=== PATIENT | female | born 1965 | race Caucasian/White ===

== ENCOUNTER 2018-10-11 03:13 | Observation (INO) | payer MEDICAID ==
[~2018-10-11] VITALS: Ht 147.3 cm; Wt 40.9 kg
--- NOTE | ~2018-10-11 | HEMODYNAMI ---
PATIENT:ELLY MERCEDES MEDICAL RECORD: [id number] : 69 [facility] [id number] ADMISSION DATE: 10/11/18 Generatedon:10/11/201811:27 Patient name: ELLY MERCEDES Patient #: [id number] SSN: DO B: 1965 Date of study: 10/11/2018 Page: Of Hemodynamic Procedure Report Patient Data Patient Demographics Procedure consent was obtained First Name: ELLY Gender: Female Last Name: DAREN : 1965 Patient #: [id number] Age: 53 year(s) Race: Unknown Additional ID: [id number] Contact details Address: [address] [place] [address] State: [place] City: [place] Zip code: [address] Past Medical History Allergies: No known allergies Admission Admission Data Admission Date: 10/11/2018 Admission Time: 4:01 Room #: D2119 Lab Results Lab Result Date: 10/11/2018 Lab Result Time: 0:00 Biochemistry Name Units Result Min Max BUN mg/dl 10 --(-*--)-- 7 18 Creatinine mg/dl 0.7 --(*---)-- 0.6 1.3 eGFR ml/min 90 --(*---)-- 90 120 NONAFRICAN CBC Name Units Result Min Max Hematocrit % 38.9 *-(----)-- 42 54 Hemoglobin g/dl 13.5 --(*---)-- 13.5 17.5 Procedure Procedure Types Cath Procedure Diagnostic Procedure C [facility] w/Coronaries Sedation Charges Moderate Sedation up to 30 minutes PCI Procedure Coronary Stent Coronary Stent Initial Procedure Description Procedure Date Procedure Date: 10/11/2018 Procedure Start Time: 10:58 Procedure End Time: 11:26 Procedure Staff Name Function Wilmer Kraus MD Performing Physician Amina Monge RT Monitor Henna Gamble RT Scrub Coleman Norman RT Scrub Courtney Denney RN Nurse Procedure Data Cath Procedure Fluoroscopy Diagnostic fluoroscopy Total fluoroscopy Time: 4.7 time: 4.7 min min Diagnostic fluoroscopy Total fluoroscopy dose: 212 dose: 212 mGy mGy Contrast Material Contrast Material Type Amount (ml) Isovue 300 101 Entry Location Entry Primary Successful Side Size Upsize Upsize Entry Closure Succes sful Closure Location (Fr) 1 (Fr) 2 (Fr) Remarks Device Remarks Femoral Right 5 Fr 6 Fr Exoseal artery Short Estimated blood loss: 10 ml Diagnostic catheters Device Type Used For End Catheter Placement MULTIPACK JL 4.0 5Fr Procedure catheter MULTIPACK 3DRC 5Fr Procedure catheter MULTIPACK Pigtail 5 Fr Procedure catheter Procedure Complications No complications Procedure Medications Medication Administration Route Dosage 0.9% NaCl I.V. 100 ml/hr Oxygen etCO2 Nasal cannula 2 l/min Lidocaine 2% added to field 20 Heparin Flush Bag added to field 2 bags (1000units/500ml NS) Versed I.V. 2 mg Fentanyl I.V. 50 mcg Fentanyl I.V. 50 mcg Versed I.V. 2 mg Heparin Bolus I.V. 4000 units Nitroglycerin IC/IA I.C. 100 mcg Plavix P.O. 600 mg Nitroglycerin IC/IA I.C. 100 mcg Hemodynamics Rest HGB: 13.5 (g/dl) Heart Rate: 44 (bpm) Pressure Samples Time Site Value (mmHg) Purpose Heart Use Rate(bpm) 11:06 LV 101/3,13 Snapshot 75 11:08 AO 106/62(81) Pullback 71 11:08 LV 110/6,30 Pullback 71 Gradients Valve Time Site 1 Site 2 Mean SEP/DFP Peak To Heart Use (mmHg) (sec/min) Peak Rate (mmHg) (bpm) Aortic 11:08 LV AO 6 21 4 71 110/6,30 106/62(81) Calculations Valve P-P Mean Valve Index Valve Source Name Gradient Area Flow (cm2) Aortic 4 6 4 6 Snapshots Pre Cath Intra NCS Post Cath Vital Signs Time Heart Resp SPO2 etCO2 NIBP Rhythm Pain Sedation Rate (ipm) (%) (mmHg) (mmHg) Status Level (bpm) 10:38:08 49 18 100 28 128/80(99) SB 0 (11) 10(A) , No pain 10:42:15 51 15 100 34.4 125/70(99) SB 0 (11) 10(A) , No pain 10:46:23 63 19 100 38.9 106/67(87) NSR 0 (11) 10(A) , No pain 10:50:25 71 12 100 41.2 104/64(80) NSR 0 (11) 10(A) , No pain 10:54:27 64 11 99 41.2 102/60(76) NSR 0 (11) 9(A) , No pain 10:58:28 62 11 100 40.4 95/58(72) NSR 0 (11) 9(A) , No pain 11:02:24 68 13 100 37.4 111/68(82) NSR 0 (11) 9(A) , No pain 11:06:27 74 11 100 38.9 98/61(79) NSR 0 (11) 9(A) , No pain 11:10:27 72 12 100 38.9 97/60(76) NSR 0 (11) 9(A) , No pain 11:14:31 79 12 100 39.7 100/46(70) NSR 0 (11) 10(A) , No pain 11:18:34 72 12 100 38.2 88/53(68) NSR 0 (11) 10(A) , No pain 11:22:32 75 12 98 37.4 90/54(73) NSR 0 (11) 10(A) , No pain 11:26:28 62 11 100 33.7 108/65(83) NSR 0 (11) 10(A) , No pain Medications Time Medication Route Dose Verified Delivered Reason Notes Effectiveness by by 10:41:08 0.9% NaCl I.V. 100 Wilmer Courtney used for ml/hr Efra Denney hand sander 10:41:14 Oxygen etCO2 2 Wilmer Courtney used for Nasal l/min Efra Denney procedure cannula RN 10:41:20 Lidocaine 2% added 20ml Wilmer Wilmer for local to vial Efra Kraus MD anesthetic field 10:41:24 Heparin Flush added 2 Wilmer Wilmer used for Bag to bags Efra Kraus MD procedure (1000units/500ml field NS) 10:48:28 Fentanyl I.V. 50 Wilmer Courtney for sedation mcg Efra Denney RN 10:48:28 Versed I.V. 2 mg Wilmer Courtney for sedation Efra Denney RN 10:53:03 Fentanyl I.V. 50 Wilmer Courtney for sedation mcg Efra Denney RN 10:53:12 Versed I.V. 2 mg Wilmer Courtney for sedation Efra Denney RN 11:13:22 Heparin Bolus I.V. 4000 Wilmer Courtney for verif ied units Efra Denney anticoagulation with Dr. SARA Kraus 11:13:37 Nitroglycerin I.C. 100 Wilmer Wilmer for IC/IA mcg Efra Kraus MD vasodilation 11:17:36 Plavix P.O. 600 Wilmer Wilmer for mg Efra Kraus MD antiplatelet therapy 11:19:53 Nitroglycerin I.C. 100 Wilmer Wilmer for IC/IA mcg Efra Kraus MD vasodilation Procedure Log Time Note 10:12:15 Signed procedure consent form obtained from patient. 10:12:18 Diagnostic Cath status Urgent 10:12:18 Time tracking: Regular hours (M-F 7:00 - 5:00) 10:12:24 Plan of Care:Hemodynamics will remain stable., Cardiac rhythm will remain stable., Comfort level will be maintained., Respiratory function will remain adequate., Patient/ family verbilizes understanding of procedure., Procedure tolerated without complication., Recovers from procedure without complications.. 10:12:42 Patient allergic to No known allergies 10:13:20 Lab Result : Creatinine 0.7 mg/dl 10:13:20 Lab Result : BUN 10 mg/dl 10:13:20 Lab Result : eGFR NONAFRICAN 90 ml/min 10:13:20 Lab Result : Hematocrit 38.9 % 10:13:20 Lab Result : Hemoglobin 13.5 g/dl 10:15:17 Amina Monge RT(R) sent for patient. Start room use. 10:33:35 Patient received from Med II to CCL 1 Alert and oriented. Tansferred to table in Supine position. 10:33:36 Warm blankets applied, and paradise hugger turned on for patient comfort. 10:33:38 Correct patient and procedure confirmed by team. 10:33:39 ECG and BP/O2 sat monitors applied to patient. 10:37:17 Vital chart was started 10:39:53 Baseline sample Acquired. 10:39:57 Rhythm: sinus bradycardia 10:39:58 Full Disclosure recording started 10:39:58 Pre-procedure instructions explained to patient. 10:39:59 Pre-op teaching completed and patient verbalized understanding. 10:40:00 Family in patients room. 10:40:01 Patient NPO since Midnight. 10:40:04 Is patient on blood thinner?No 10:40:05 Patient diabetic? No. 10:40:07 Patient not . Patient has had hysterectomy. 10:40:09 Patient not . Patient has had hysterectomy. 10:40:11 Previous problem with sedation/anesthesia? No ? 10:40:14 Snore? Yes 10:40:15 Sleep apnea? No 10:40:15 Deviated septum? No 10:40:16 Opens mouth fully? Yes 10:40:17 Sticks out tongue? Yes 10:40:20 Airway obstruction? Yes COPD 10:40:27 Dentures? Yes PARTIAL OUT 10:40:31 Pre procedure: right dorsailis pedis pulse 1+ Palpable, but thready & weak; easily obliterated 10:40:37 Patient pain scale 0/10 ?. 10:40:42 IV patent on arrival in right wrist with 0.9% NaCl at O. 10:40:45 Lab results completed and on chart. 10:40:57 Right groin area was prepped with chlora-prep and draped in sterile fashion 10:40:58 Alarms reviewed by R. N. 10:40:58 Sharps counted by scrub and verified by R.N. 10:41:01 Use device set Femoral Dx 10:41:01 ACIST Syringe (97007) opened to sterile field. 10:41:02 Bag Decanter () opened to sterile field. 10:41:03 ACIST Hand Control (45721) opened to sterile field. 10:41:03 ACIST Manifold (25196) opened to sterile field. 10:41:04 Tegaderm 4 x 4 (1626W) opened to sterile field. 10:41:05 Medline Cath Pack ([id number]) opened to sterile field. 10:41:07 DIAGNOSTIC Multipack 5Fr catheter set (FL0619) opened to sterile field. 10:41:08 0.9% NaCl 100 ml/hr I.V. was administered by Courtney Denney RN; used for procedure; 10:41:08 SHEATH 5FR Franklin (JFV654) opened to sterile field. 10:41:08 EMERALD Guide Wire (794-251) opened to sterile field. 10:41:14 Oxygen 2 l/min etCO2 Nasal cannula was administered by Courtney Denney RN; used for procedure; 10:41:20 Lidocaine 2% 20ml vial added to field was administered by Wilmer Kraus MD; for local anesthetic; 10:41:24 Heparin Flush Bag (1000units/500ml NS) 2 bags added to field was administered by Wilmer Kraus MD; used for procedure; 10:47:27 --------ALL STOP TIME OUT------ 10:47:27 Final Timeout: patient, procedure, and site verified with staff and physician. All members of the team are in agreement. 10:47:29 Right groin site verified by team. 10:47:33 Fire Safety Assessment: A--An alcohol-based skin anteseptic being used preoperatively., C--Open oxygen or nitrous oxide is being used., D--An ESU, laser, or fiber-optic light is being used. 10:48:10 Physical assessment completed. ASA score P 3 - A patient with severe systemic disease as per Wilmer Kraus MD. 10:48:14 1) 90+ Normal kidney functon but urine findings or structural abnormalities or genetic trait point to kidney disease. 10:48:18 Maximum allowable contrast does (3.7 X eGFR X 0.75)250 ml. 10:48:21 Sedation plan: IV Moderate Sedation Medication:Versed, Fentanyl 10:48:28 Versed 2 mg I.V. was administered by Courtney Denney RN; for sedation; 10:48:28 Fentanyl 50 mcg I.V. was administered by Courtney Denney RN; for sedation; 10:52:47 Zero performed for pressure channel P1 10:53:03 Fentanyl 50 mcg I.V. was administered by Courtney Denney RN; for sedation; 10:53:12 Versed 2 mg I.V. was administered by Courtney Denney RN; for sedation; 10:56:26 Procedure started. 10:58:00 Local anesthetic to right femoral artery with Lidocaine 2% by Wilmer Kraus MD.INITIAL ACCESS ONLY 10:59:59 A 5 Fr sheath was inserted into the Right Femoral artery 11:00:14 A MULTIPACK JL 4.0 5Fr catheter was advanced over the wire and used for Procedure. 11:02:51 LCA angiography performed. 11:02:52 Catheter exchanged over wire. 11:03:44 A MULTIPACK 3DRC 5Fr catheter was advanced over the wire and used for Procedure. 11:04:52 RCA angiography performed. 11:04:54 Catheter exchanged over wire. 11:05:48 A MULTIPACK Pigtail 5 Fr catheter was advanced over the wire and used for Procedure. 11:06:48 LV gram done using BARRETO 11:06:51 Injector settings: Ml/sec: 10, Volume: 20, 11:07:03 LV hemodynamics recorded. 11:07:46 EF : 50 % 11:08:01 Catheter exchanged over wire. 11:10:00 SHEATH 6FR Franklin (XJL239) opened to sterile field. 11:10:06 BMW 300cm Straight [place] 2 wire ([id number]) opened to sterile field. 11:10:11 TUBING High Pressure Extension Tubing (Efra) (RS0512R) opened to sterile field. 11:10:25 INFLATOR Merit BasixCompak (TU4617) opened to sterile field. 11:10:30 GUIDE 6FR EBU 3.0 catheter ([id number]) opened to sterile field. 11:10:57 Sheath upsized to a 6 Fr Short. 11:11:47 6 Fr EBU3 guide catheter was inserted over the wire 11:13:22 Heparin Bolus 4000 units I.V. was administered by Courtney Denney RN; for anticoagulation; verified with Dr. Kraus 11:13:37 Nitroglycerin IC/IA 100 mcg I.C. was administered by Wilmer Kraus MD; for vasodilation; 11:15:02 BMW 300 wire advanced. 11:17:36 Plavix 600 mg P.O. was administered by Wilmer Kraus MD; for antiplatelet therapy; 11:18:04 Wire advanced across lesion. 11:19:30 Place stent Inflation Number: 1 A COBRA RX 3.0 X 18 Stent was prepped and advanced across the Mid LAD . The stent was deployed at 14 LUBNA for 0:00 (min:sec) . 11:19:38 Stent catheter was removed intact over wire. 11:19:53 Nitroglycerin IC/IA 100 mcg I.C. was administered by Wilmer Kraus MD; for vasodilation; 11::16 Wire removed. 11:21:16 Guide catheter removed. 11:21:23 EXOSEAL 6Fr (EX600) opened to sterile field. 11::55 Sheath removed intact; hemostasis achieved with Exoseal to the Right Femoral artery. 11:23:09 Fluoroscopy time 04.70 minutes. 11:23:11 Fluoroscopy dose: 212 mGy 11:23:11 Flurop Dose total: 212 11:23:15 Contrast amount:Isovue 300 101ml. 11:23:16 Procedure ended.(Physican Out) 11:23:25 Sharps counted by scrub and verified by R.N. 11:23:28 Post-op/insertion site Right Femoral artery dressed using a 4 x 4 and Tegaderm. 11:23:36 Post-procedure physical assessment completed. ASA score P 3 - A patient with severe systemic disease as per Wilmer Kraus MD. 11:23:39 Post procedure rhythm: sinus rhythm 11:23:52 Estimated blood loss: 10 ml 11:23:53 Post procedure instruction explained to patient.Patient verbalizes understanding. 11:23:54 Patient needs reinforcement of post procedure teaching. 11:24:17 Procedure type changed to Cath procedure, Diagnostic procedure, LHC, LHC w/Coronaries, Sedation Charges, Moderate Sedation up to 30 minutes, PCI procedure, Coronary Stent, Coronary Stent Initial 11:25:40 Procedure and supply charges have been captured, reviewed, submitted and are correct. 11:25:49 Procedure Complication : No complications 11:26:47 Vital chart was stopped 11:26:48 See physician's report for complete and final results. 11::52 Report given to [facility]. 11:26:55 Patient transfered to [facility] with Bed. 11:26:57 Procedure ended. 11:26:57 Full Disclosure recording stopped 11:27:01 End room use (Document Last) Intervention Summary Intervention Notes Time ActionType Lesion and Equipment Action# Pressure Duration Attributes Used 11:19:30 Place stent Mid LAD COBRA RX 1 14 00:00 3.0 X 18 Stent Device Usage Item Name Manufacture Quantity Catalog Hospital Part Current Minimal Lot# / Number Charge Number Stock Stock Serial# Code ACIST Syringe Acist 1 42417 054851 346699 066079 20 (01671) Everyday Solutions Bag Decanter Microtek 1 737538 74737 554352 5 (2001S) Medical Inc. ACIST Hand Acist 1 47138 937200 176557 612320 5 Control Medical (94136) Systems Inc ACIST Manifold Acist 1 96923 024980 111098 339379 5 (11063) Medical Systems Inc Tegaderm 4 x 4 3M 1 1626W 294885 961534 143557 5 (1626W) Medline Cath Medline 1 [id number] 546248 96176 343066 5 Pack ([id number]) DIAGNOSTIC Cardinal 1 HI6340 941520 34201 650700 30 Multipack 5Fr Health catheter set (DG0206) SHEATH 5FR Terumo 1 JES903 094042 703785 922448 5 Franklin (MMD563) EMERALD Guide Cardinal 1 502-455 001655 567939 926977 5 Wire (502-455) Health MULTIPACK JL Cardinal 1 601415 5 4.0 5Fr Health catheter MULTIPACK 3DRC Cardinal 1 902565 5 5Fr catheter Health MULTIPACK Cardinal 1 499761 5 Pigtail 5 Fr Health catheter SHEATH 6FR Terumo 1 PTE818 955182 225303 845558 40 Franklin (YPL729) BMW 300cm Dias 1 3949638 360037 500821 656561 5 Straight Vascular [place] 2 wire (0729483) TUBING High Merit 1 [id number] 509136 14294 732363 10 Pressure Medical Extension Tubing (Kraus) ([id number]) INFLATOR Merit Merit 1 TX0917 241207 055470 622454 15 BasixAcadia HealthcareTaxiPixi Medical (NO8604) GUIDE 6FR EBU Medtronic 1 [id number] 648796 08026 045606 0 3.0 catheter ([id number]) COBRA RX 3.0 X Celonova 1 368224 [id number] [id number] 0 [id number] 18 stent Biosciences () EXOSEAL 6Fr Cardinal 1 EX600 185153 967927 839873 10 (EX600) Health Signature Audit [place] Stage Time Signature Unsigned Intra-Procedure 10/11/2018 Amina Monge 11:27:23 AM RT(R) Signatures Monitor : Amina Monge Signature : RT Date : Time : [address] [place] [address]
[2018-10-11] MEDS ORDERED: COMBIVENT RESPIM4 GM INH (03:27)
[2018-10-11] MEDS ORDERED: CALCIUM 600 +1 EAC3 PO (03:27)
[2018-10-11 04:00] VITALS: BP 104/64
[2018-10-11 04:32] LABS: CKMB 0.6 U/L (0.0-3.6); CREATINE KINASE 52 UL (21-215)
[2018-10-11 04:33] LABS: TROPONIN-I < 0.017 ng/mL (0.000-0.060)
[2018-10-11 04:59] VITALS: BP 104/64; Ht 147.3 cm; Wt 40.9 kg
[2018-10-11 06:01] LABS: BASOPHILS 0.1 % (0-2); EOSINOPHILS 1.6 % (0-7); HEMATOCRIT 38.9 % (36.0-48.0); HEMOGLOBIN 13.5 g/dL (12-16); IMMATURE GRANULOCYTES 0.1 % (0-5); LYMPHOCYTES 41.1 % (15-50); MCH 32.5 pg (26.0-34.0); MCHC 34.7 g/dL (31.0-37.0); MCV 93.5 fL (80.0-100.0); MEAN PLATELET VOLUME 10.8 fL (7.4-10.4); MONOCYTES 6.9 % (2-11); NEUTROPHILS 50.2 % (40-80); PLATELET COUNT 236 10x3/uL (130-400); RBC 4.16 10x6/uL (4.00-5.40); RDW 13.9 % (11.5-14.5); WBC 8.2 10x3/uL (4.8-10.8)
[2018-10-11 06:36] LABS: CALC OSMOLALITY 283 mosm/kg (275-300); CALCIUM 8.6 mg/dL (8.5-10.1); CARBON DIOXIDE 26.3 mmol/L (21.0-32.0); CHLORIDE - SERUM 108 mmol/L (98-107); CREATININE - SERUM 0.7 mg/dL (0.6-1.3); GLUCOSE 100 mg/dL (74-106); MAGNESIUM - SERUM 2.5 mg/dL (1.8-2.4); PHOSPHOROUS 3.6 mg/dL (2.5-4.9); POTASSIUM - SERUM 4.2 mmol/L (3.5-5.1); SODIUM 143 mmol/L (136-145); UREA NITROGEN 10 mg/dL (7-18); eGFR NON AFRICAN AMERICAN > 90 mL/min (90-120)
[2018-10-11 07:11] LABS: CKMB 0.8 U/L (0.0-3.6); CREATINE KINASE 55 UL (21-215)
[2018-10-11 07:21] LABS: TROPONIN-I < 0.017 ng/mL (0.000-0.060)
--- NOTE | 2018-10-11 07:50 | NUR ---
TELEMETRY SB. CONSENTS SIGNED FOR [facility]. WILL CONT. PLAN OF CARE.
[2018-10-11 09:43] VITALS: BP 103/69
--- NOTE | 2018-10-11 10:20 | NUR ---
PRE-OPS GIVEN. 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
--- NOTE | 2018-10-11 11:55 | NUR ---
BACK FROM [employer]. VS WNL. RIGHT GROIN STABLE WITHOUT BLEEDING OR HEMATOMA NOTED. WILL MONITOR.
--- NOTE | 2018-10-11 12:35 | NUR ---
REFUSES SCDS AT THIS TIME.
[2018-10-11 13:27] VITALS: BP 115/69
--- NOTE | 2018-10-11 15:50 | NUR ---
BED REST UP. GROIN STABLE.
[2018-10-11] MEDS ORDERED: PLAVIX75 MG PO (16:08)
--- NOTE | 2018-10-11 16:50 | MORECARE ---
CASE MANAGEMENT DISCHARGE SUMMARY PATIENT: ELLY MERCEDES UNIT: [id number] ADM DATE: 10/11/18 AGE: 53 : 69 SEX: F ROOM/BED: D.6359 AUTHOR: KILEY PRINCE PHYSICIAN: REFERRING PHYSICIAN: LANNY HERNANDEZ MD DATE OF SERVICE: 10/11/18 Discharge Plan Patient Name: [facility] 1965 Planned Disposition: Home Anticipated Discharge Date: 10/11/18 Discharge Date: Expected LOS: 1 Initial Reviewer: [email or web address] Initial Review Date: 10/11/2018 Generated: 10/11/18 5:50 pm Patient Name: ELLY MERCEDES Page [id number] at 1650 All edits/amendments must be made on the electronic document DICTATION DATE: 10/11/181649 QUALITY ASSURANCE DIRECTOR: TONE 10/11/181649 RPT#: [id number] DC DATE: STATUS: ADM IN [facility] [address] [place] [address] END OF REPORT
--- NOTE | 2018-10-11 17:29 | NUR ---
IV AND TELEMETRY DCD. DC PLANS GIVEN. UNDERSTANDING VOICED. ESCORTED TO CAR BY W/C.
== END 2018-10-11 17:30 | disposition home or self-care (01) ==
LOC: D.ER 03:13 → OBSVTIME 04:01 → D.M2 04:01
PROVIDERS: Emergency Medicine; ADMIT Family Medicine Adult Medicine; ATTEND Family Medicine Adult Medicine
DX: I20.0 Unstable angina (principal); J44.9 Chronic obstructive pulmonary disease, unspecified; F17.203 Nicotine dependence unspecified, with withdrawal